=== PATIENT | male | born 1985 | race Caucasian/White ===

== ENCOUNTER 2024-02-14 10:09 | Observation (INO) | payer OTHER, SELFPAY ==
[2024-02-14] VITALS (32 sets, daily range): BP systolic 109–155; BP diastolic 56–92; PULSE 56–90; RESP 16–20; TEMP 36.6–37.3; O2SAT 93–100; BMI 28.6
--- NOTE | ~2024-02-14 | CT_ITS ---
EXAMINATION: CT abdomen pelvis wo con DATE: 02/14/2024 11:52 INDICATION: Intractable nausea and vomiting TECHNIQUE: Computed tomography (CT) of the abdomen and pelvis was performed with 100 mL Omnipaque-350 intravenous contrast. Automated exposure control and iterative reconstruction technique were employe d. The dose-length product was 360.87 mGy-cm. COMPARISON: None FINDINGS: Few small calcified nodules in the right lower lobe consistent with old granulomatous disease. Heart size is normal. No pericardial or pleural effusion. Small sliding-type hiatal hernia. Liver, gallblad [place], spleen, pancreas, bilateral adrenal glands and kidneys are normal. Bowels including the appendix are normal. Bladder is normal. No free intraperitoneal gas or fluid. No pathologically enlarged abdo diane or pelvic lymphadenopathy. Moderate lower thoracic and mild lumbar spondylosis. Small bone kemal nds at the right atrium and the left femoral head. IMPRESSION: 1. No acute intra-abdominal/pelvic process. 2. Small sliding-type hiatal hernia. Reviewed, dictated and finalized at location A.
--- NOTE | ~2024-02-14 | XR_ITS ---
EXAMINATION: XR chest 2V 02/14/2024 10:38 INDICATION: Chest pain. Covid. PROCEDURE: 2 view chest COMPARISON: No prior studies for comparison. FINDINGS: The lungs are clear. The cardiomediastinal silhouette is within normal limits. There are no pleural effusions. There is no pneumothorax suspected. There are calcified granulomas in the rig ht lower lung. IMPRESSION: 1: NO ACUTE CARDIOPULMONARY DISEASE. Reviewed, dictated and finalized at location B.
--- NOTE | 2024-02-14 10:19 | ECG_ITS ---
Test Date: 2024-02-14 10:28:37 Measurements Intervals [place] Rate: 53 P: 78 AK: 130 QRS: 88 QRSD: 90 T: 66 QT: 444 QTc: 418 Interpretive Statements SINUS BRADYCARDIA No previous ECG available for comparison Electronically Signed On 02-14-2024 13:30:35 CDT by Vibha Randall M.D.
--- NOTE | 2024-02-14 10:25 | ED.GENADULT ---
HPI - General Adult General Chief complaint: Upper Respiratory Infection Stated complaint: covid, nausea, vomiting Source: patient and family Mode of arrival: ambulatory Limitations: no limitations History of Present Illness HPI narrative: 38 years old white male came to the ED by private car complaining of nausea and frequent vomiting . Patient tested positive for COVID infection 36 hours ago. Was seen at [facility] and discharged on Zofran. Patient is telling me that he did not stop vomiting since. . Patient started having diffuse chest pain, aching, all over worse with vomiting. Related Data Home Medications Medication Instructions Recorded Confirmed No Home Medications 02/14/24 02/14/24 Allergies Allergy/AdvReac Type Severity Reaction Status Date / Time No Known Allergies Allergy Verified 02/14/24 11:13 Review of Systems Review of Systems: All systems reviewed & are unremarkable except as noted in HPI and below Exam Narrative: General appearance: Well-developed, well-nourished Skin: Normal color Head: Normocephalic, nontraumatic Eyes: Clear conjunctiva ENT: Oropharynx normal, ears normal, nose normal Neck: Supple, nontender Chest and respiratory: Airway patent, no respiratory distress, no accessory muscle use Heart: Regular rate/rhythm Abdomen: Soft, nontender, no organomegaly, quiet bowel sounds Vascular: Normal peripheral pulses, normal capillary refill. 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 as tested, no gross motor deficit Course Vital Signs Vital signs: Vital Signs Temperature 36.9 C 02/14/24 10:09 Pulse Rate 56 L 02/14/24 10:09 Respiratory Rate 20 02/14/24 10:09 Blood Pressure 151/83 H 02/14/24 10:09 Pulse Oximetry 100 02/14/24 10:09 Oxygen Delivery Room Air 02/14/24 10:09 Temperature 36.9 C 02/14/24 10:09 Pulse Rate 58 L 02/14/24 11:54 Respiratory Rate 18 02/14/24 11:54 Blood Pressure 154/80 H 02/14/24 12:01 Pulse Oximetry 100 02/14/24 12:01 Oxygen Delivery Room Air 02/14/24 11:54 Medical Decision Making [facility] Narrative Medical decision making narrative: patient tested positive for COVID 2 days ago Came to the emergency room with vomiting, unable to keep anything down and chest pain. Vital signs stable Physical examination showing restless patient, with dry heave differential diagnosis viral syndrome, dehydration, electrolyte imbalance, chest wall pain secondary to vomiting, urinary tract infection-less likely Blood workup today showed WBC of 17.3, reactive leukocytosis, creatinine of 1.5, no old records for comparison, glucose 260, lactic acid 3.4, calcium 11.2 Urinalysis showed no evidence of infection. Patient's symptoms start improving after 2 L of normal saline IV, 8 mg of Zofran IV. At the hospitalist, observation. Differential Diagnosis Differential Diagnosis: as above Vital Signs Vital Signs: Vital Signs Temperature 36.9 C 02/14/24 10:09 Pulse Rate 56 L 02/14/24 10:09 Respiratory Rate 20 02/14/24 10:09 Blood Pressure 151/83 H 02/14/24 10:09 Pulse Oximetry 100 02/14/24 10:09 Oxygen Delivery Room Air 02/14/24 10:09 Temperature 36.9 C 02/14/24 10:09 Pulse Rate 58 L 02/14/24 11:54 Respiratory Rate 18 02/14/24 11:54 Blood Pressure 154/80 H 02/14/24 12:01 Pulse Oximetry 100 02/14/24 12:01 Oxygen Delivery Room Air 02/14/24 11:54 Lab Data 02/14/24 10:15 02/14/24 10:15 Labs: Lab Results 02/14/24 02/14/24 02/14/24 Range/Units 10:15 10:25 11:45 WBC 17.3 H (4.8-10.8) K/m
[2024-02-14 10:34] LABS: Basophils Absolute Auto 0.02 K/mm3 (0.00-0.10); Basophils Percent Auto 0.1 % (0.0-1.0); Hematocrit 44.3 % (40.0-54.0); Hemoglobin 15.6 g/dL (14.0-18.0); Immature Granulocyte Absolute 0.08 K/mm3 (0.00-0.00); Immature Granulocyte Percent A 0.5 % (0.0-0.0); Lymphocytes Absolute Auto 1.56 K/mm3 (1.10-4.50); Mean Corpuscular HGB Conc 35.2 g/dL (32-36); Mean Corpuscular Hemoglobin 30.3 pg (27.0-31.0); Mean Platelet Volume 8.9 fl (8.7-11.0); Monocytes Absolute Auto 1.01 K/mm3 (0.10-0.90); Monocytes Percent Auto 5.9 % (2.0-11.0); Neutrophils Absolute Auto 14.59 K/mm3 (1.70-7.20); Neutrophils Percent Auto 84.5 % (50.0-70.0); Platelet Count Result 414 K/mm3 (150-420); Red Blood Count 5.15 M/mm3 (4.70-6.10); Red Cell Distribution Width 11.8 % (11.6-14.4); White Blood Count 17.3 K/mm3 (4.8-10.8)
[2024-02-14 10:43] LABS: Alanine Aminotransferase 31 U/L (16-63); Albumin Level 4.5 g/dL (3.4-5.0); Alkaline Phosphatase 77 U/L (46-116); Anion Gap 18 mmol/L (4-12); Aspartate Amino Transferase 13 U/L (15-37); Bilirubin,Total 1.3 mg/dL (0.00-1.00); Blood Urea Nitrogen 27 mg/dL (7-18); Calcium 11.2 mg/dL (8.5-10.1); Carbon Dioxide 24 mmol/L (21-32); Chloride 96 mmol/L (98-108); Estimated CRCL calculation 52 ml/min; Estimated Glomerular Filt Rate 52; Glucose 260 mg/dL (70-99); Osmolality Calculated 300 mOsm/kg (285-295); Potassium 3.9 mmol/L (3.5-5.1); Sodium 138 mmol/L (136-145); Total Protein 8.7 g/dL (6.4-8.2)
[2024-02-14] MEDS: ONDANSETRON INJ 4 MG/2 ML VIAL 8 MG IV PUSH (10:45)
[2024-02-14] MEDS: SODIUM CHLORIDE 0.9% IV 2,000 ML 999 ML IV CONT (10:46)
[2024-02-14] MEDS: KETOROLAC 30 MG/ML VIAL (*BKC) IV PUSH (10:56)
[2024-02-14] MEDS: MORPHINE SULFATE (*CRX) 4 MG/ML INJ IV PUSH (11:38)
[2024-02-14 11:52] LABS: Lipase 53 U/L (16-77); Troponin I < 4.0 ng/L (0.00-60.4)
[2024-02-14 11:57] LABS: Lactic Acid Reflex 3.4 mmol/L (0.4-2.0)
[2024-02-14 12:10] LABS: Add Urine Microscopic? YES; Appearance Urine Clear (Clear); Bilirubin Urine 1+ (Negative); Blood Urine Negative (Negative); Glucose Urine UA Negative (Negative); Ketones Urine Trace (Negative); Leukocyte Esterase Ur Negative LEU/UL (Negative); Nitrate Urine Negative (Negative); Protein Urine 2+ (Negative); Specific Grav Ur >= 1.030 (1.010-1.020); Urobilinogen Urine 0.2 mg/dL (0.2-1.0); pH Urine 5.5 (5.0-8.0)
[2024-02-14 12:12] LABS: Bacteria Urine 1+ /hpf; Color Urine Amber (Yellow); Mucus Urine Moderate /lpf; RBC Urine None seen /hpf (0-2); WBC Urine None seen /hpf (0-3)
--- NOTE | 2024-02-14 13:00 | PC.NURSE ---
Patient arrived to unit in w/c and was able to self transfer from w/c to bed. Patient admitted to room 204 on isolation for Covid 19. Patient educated on use of call light, fall prevention, use of bed controls, visiting hours, general hospital policies and use of rapid response. Patient voiced understanding.
[2024-02-14] MEDS: SODIUM CHLORIDE 0.9% IV 1,000 ML 100 ML IV CONT (14:28)
[2024-02-14 14:42] LABS: Reflex Lactic Acid Yes or No Add Lactic
[2024-02-14 15:47] LABS: Lactic Acid 1.5 mmol/L (0.4-2.0)
[2024-02-14] MEDS: ACETAMINOPHEN 325 MG TABLET 650 MG PO (16:55)
--- NOTE | 2024-02-14 23:32 | PC.NURSE ---
Julianna Solis NP, notified of pt's inability to sleep; New order was given for Melatonin 5 mg PO prn to promote sleep.
[2024-02-15] VITALS: BP 109/69; PULSE 75; RESP 16; TEMP 36.7; O2SAT 99
[2024-02-15] MEDS: MELATONIN 5 MG TABLET PO (00:22)
[2024-02-15] MEDS: SODIUM CHLORIDE 0.9% IV 1,000 ML 100 ML IV CONT (00:22)
[2024-02-15 04:00] VITALS: BP 106/79; PULSE 72; RESP 16; TEMP 36.9; O2SAT 99
[2024-02-15 05:36] LABS: Basophils Absolute Auto 0.04 K/mm3 (0.00-0.10); Basophils Percent Auto 0.3 % (0.0-1.0); Hematocrit 36.4 % (40.0-54.0); Hemoglobin 12.2 g/dL (14.0-18.0); Immature Granulocyte Absolute 0.05 K/mm3 (0.00-0.00); Immature Granulocyte Percent A 0.4 % (0.0-0.0); Lymphocytes Absolute Auto 4.21 K/mm3 (1.10-4.50); Lymphocytes Percent Auto 31.1 % (18.0-42.0); Mean Corpuscular HGB Conc 33.5 g/dL (32-36); Mean Corpuscular Hemoglobin 29.8 pg (27.0-31.0); Mean Platelet Volume 8.9 fl (8.7-11.0); Monocytes Absolute Auto 0.88 K/mm3 (0.10-0.90); Monocytes Percent Auto 6.5 % (2.0-11.0); Neutrophils Absolute Auto 8.34 K/mm3 (1.70-7.20); Neutrophils Percent Auto 61.7 % (50.0-70.0); Platelet Count Result 248 K/mm3 (150-420); Red Blood Count 4.09 M/mm3 (4.70-6.10); Red Cell Distribution Width 11.9 % (11.6-14.4); White Blood Count 13.5 K/mm3 (4.8-10.8)
[2024-02-15 06:01] LABS: Alanine Aminotransferase 29 U/L (16-63); Albumin Level 3.1 g/dL (3.4-5.0); Alkaline Phosphatase 55 U/L (46-116); Anion Gap 10 mmol/L (4-12); Aspartate Amino Transferase 12 U/L (15-37); Blood Urea Nitrogen 19 mg/dL (7-18); Calcium 8.5 mg/dL (8.5-10.1); Carbon Dioxide 27 mmol/L (21-32); Chloride 104 mmol/L (98-108); Estimated CRCL calculation 75 ml/min; Estimated Glomerular Filt Rate > 60; Glucose 112 mg/dL (70-99); Magnesium 2.1 mg/dL (1.8-2.4); Osmolality Calculated 295 mOsm/kg (285-295); Potassium 4.1 mmol/L (3.5-5.1); Sodium 141 mmol/L (136-145); Total Protein 5.8 g/dL (6.4-8.2)
[2024-02-15] MEDS: ACETAMINOPHEN 325 MG TABLET 650 MG PO (06:30)
[2024-02-15 08:00] VITALS: BP 110/81; PULSE 71; PULSE 72; RESP 16; RESP 18; TEMP 36.8; O2SAT 98
--- NOTE | 2024-02-15 08:13 | PM.SD2 ---
Same Day Admit/Disch: HPI History of Present Illness Chief complaint: covid, nausea, vomiting Narrative: Geo Barroso is a 38 year old male with a past medical history of borderline diabetes. He presented to the emergency room with complaints of chest pain and shortness of breath. The patient provides the following history with his girlfriend Odalis at the bedside. Saturday night he was at a worked dinner and started to experience nausea and vomiting. Emesis was green and accompanied by headache and low-grade fever of 100. He was seen by the emergency room in [place] on and diagnosed with COVID and discharged. he and his girlfriend are traveling back home to [facility] and during their travels he started to experience increased shortness of breath and chest discomfort causing him to contact his primary care office. They recommended that he stop at the emergency room for evaluation. On exam today he is resting in bed and does not appear in acute distress. He states that he does feel better after IV fluids. He denies chest pain and shortness of breath. He does have a persistent headache. [facility] Past Medical History Medical History Borderline diabetes Surgical History Surgical History S/p bilateral myringotomy with tube placement Social History Social History Social History: he denies alcohol use, tobacco use, and no illicit drugs. He lives with his girlfriend Odalis and has 1 child. 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 Spiritual care concerns: No Same Day Admit/Disch: Med Pre-admit Medications Home Medications Medication Instructions Recorded Confirmed Type No Home Medications 02/14/24 02/14/24 History Review of Systems Review of Systems All systems reviewed & are unremarkable except as noted in HPI and below Exam Narrative: General: appears comfortable, in no acute distress Respiratory: breathing is unlabored with even chest rise/fall, lungs are clear without wheezing, rhonchi, and crackles Cardiovascular: Rate and rhythm regular, normal s1s2, no murmur Abdomen: Soft, round, non-tender, active bowel sounds Extremities: No cyanosis, edema, clubbing. Pulses 2/2 Neuro: A&O x 4 Skin: Warm, dry, intact DS: Data Data Completed and Pending Labs on day of discharge: Labs from last 24 hours 02/15/24 02/14/24 02/14/24 05:26 14:42 11:45 WBC 13.5 H RBC 4.09 L Hgb 12.2 L Hct 36.4 L MCV 89.0 MCH 29.8 MCHC 33.5 RDW 11.9 Plt Count 248 MPV 8.9 Immature Gran % (Auto) 0.4 H Neut % (Auto) 61.7 Lymph % (Auto) 31.1 [place] % (Auto) 6.5 Eos % (Auto) 0.0 L Baso % (Auto) 0.3 Lymph # (Auto) 4.21 [place] # (Auto) 0.88 Eos # (Auto) 0.00 L Baso # (Auto) 0.04 Abs Immat Gran (auto) 0.05 H Absolute Neuts (auto) 8.34 H Absolute Nucleated RBC 0.00 Nucleated RBC % 0.0 Sodium 141 Potassium 4.1 Chloride 104 Carbon Dioxide 27 Anion Gap 10 BUN 19 H Creatinine 1.02 Estim Creat Clear Calc 75 Estimated GFR > 60 Glucose 112 H Calculated Osmolality 295 Lactic Acid 1.5 Calcium 8.5 Magnesium 2.1 Total Bilirubin 1.0 AST
[2024-02-15] MEDS: NAPROXEN 250 MG TABLET 500 MG PO (08:50)
[2024-02-15] MEDS: ENOXAPARIN 40 MG/0.4 ML SYRINGE SUB-Q (08:50)
--- NOTE | 2024-02-15 09:21 | PC.NURSE ---
Discharge instructions reviewed with patient and girlfriend, all questions answered. Patient ambulates independently, and will shower before discharge. Awaiting patient to call to transfer downstairs.
--- NOTE | 2024-02-17 09:13 | PC.NURSE ---
Discharge call back attempted, no answer
--- NOTE | 2024-02-18 09:03 | PC.NURSE ---
Discharge call back complete, received excellent care, no questions regarding dc instructions, to see PMD today for follow up
== END 2024-02-15 09:40 | disposition home or self-care (01) ==
LOC: CHSED 12:39 → CHS2ND 12:47 → CHSED 02-17 08:36 → CHS2ND 02-17 08:37
PROVIDERS: Nurse Practitioner Acute Care; Admitting Provider Internal Medicine; Emergency Provider Emergency Medicine; Visit Provider Internal Medicine
DX: U07.1 COVID-19 (principal); R11.2 Nausea with vomiting, unspecified; N17.9 Acute kidney failure, unspecified; E86.0 Dehydration; R73.03 Prediabetes
CPT/HCPCS: 36415; 71046; 74176; 80053; 81001; 83605; 83690; 83735; 84484; 85025; 93005; 96361; 96372; 96374; 96375; 99285; A9270; G0378; J1650; J1885; J2270; J2405; J7030